=== PATIENT | female | born 1960 | race Caucasian/White ===

== ENCOUNTER 2018-03-21 08:32 | Day surgery (SDC) | payer BC ==
[2018-03-21] MEDS ORDERED: Sodium Chloride 0.9% 10 ML Syringe FLUSH PRN (09:00)
[2018-03-21] MEDS ORDERED: Lactated Ringers 1,000 ML IV SCH (09:00)
[2018-03-21] MEDS ORDERED: Propofol 200 MG/20 ML SDV IV ONE (09:50)
--- NOTE | 2018-03-21 10:25 | PCM.OPNOTE ---
- General Post-Op/Procedure Note Date of Surgery/Procedure: 03/21/18 Operative Procedure(s): c scope with bx Findings: cecal polyp descending colon polyp (splenic flexure) Pre Op Diagnosis: hx of rectal polyp Post-Op Diagnosis: cecal polyp. descending colon polyp Anesthesia Technique: MAC Primary Surgeon: Balwinder Saab Anesthesia Provider: Gerhard Davis Pathology: cecal and descending colon polyp Complications: None Condition: Good Free Text/Narrative:: see dictation
--- NOTE | 2018-03-21 14:52 | OR ---
DATE OF OPERATION: 03/21/2018 SURGEON: Balwinder Saab MD PROCEDURES PERFORMED: Colonoscopy with cold forceps biopsy. PREOPERATIVE DIAGNOSIS: History of rectal polyp. POSTOPERATIVE DIAGNOSIS: Cecal polyp and splenic flexure polyp. INDICATIONS FOR PROCEDURE: This is a 57-year-old white female who is referred with the above-mentioned history of a rectal polyp. She is due for a followup scope, was offered and accepted same. DESCRIPTION OF OPERATION: After an excellent IV sedation was administered, digital rectal exam was done. No marked abnormality was noted. The flexible colonoscope was inserted and advanced without difficulty to the cecum. The prep was excellent. The following findings were noted. Ascending colon, a small cecal polyp, biopsied with cold biopsy forceps, and sent for permanent. Transverse colon, unremarkable. Descending colon, at the splenic flexure, small polyp, biopsied with cold biopsy forceps and sent for permanent. Sigmoid, unremarkable. Rectum and anus, unremarkable. Colon was deflated. The scope was removed. The patient tolerated the procedure well and was taken to recovery room in a good condition. /[id number] /LENAL
== END 2018-03-21 11:47 | disposition home or self-care (01) ==
LOC: FB.SDS 08:32
PROVIDERS: ATTEND Surgery
DX: Z12.11 Encounter for screening for malignant neoplasm of colon (principal); D12.3 Benign neoplasm of transverse colon; K63.5 Polyp of colon; E66.9 Obesity, unspecified; Z68.25 Body mass index [BMI] 25.0-25.9, adult; K21.9 Gastro-esophageal reflux disease without esophagitis; E78.5 Hyperlipidemia, unspecified; Z86.010 Personal history of colon polyps; Z79.899 Other long term (current) drug therapy
CPT/HCPCS: 88305; J2704; J7120

== ENCOUNTER 2023-05-18 06:32 | Day surgery (SDC) | payer BC ==
[~2023-05-18 06:32] MED LIST: Lactated Ringers 1,000 ML IV SCH; Sodium Chloride 0.9% 10 ML Syringe FLUSH PRN
[2023-05-18] MEDS ORDERED: Propofol 200 MG/20 ML SDV IV ONE (06:33)
[2023-05-18] MEDS ORDERED: Lidocaine 2% 5 ML SDV IV ONE (06:33)
[2023-05-18] MEDS ORDERED: Simethicone Drops 40 MG/0.6 ML 30 ML Bottle ONE (07:17)
== END 2023-05-18 09:29 | disposition home or self-care (01) ==
LOC: FB.SDS 06:32
PROVIDERS: ATTEND Surgery
DX: Z12.11 Encounter for screening for malignant neoplasm of colon (principal); K63.5 Polyp of colon; K62.5 Hemorrhage of anus and rectum; K52.9 Noninfective gastroenteritis and colitis, unspecified; K21.9 Gastro-esophageal reflux disease without esophagitis; E78.5 Hyperlipidemia, unspecified; D64.9 Anemia, unspecified; Z90.49 Acquired absence of other specified parts of digestive tract; Z90.89 Acquired absence of other organs; Z79.899 Other long term (current) drug therapy; Z77.22 Contact with and (suspected) exposure to environmental tobacco smoke (acute) (chronic); Z80.0 Family history of malignant neoplasm of digestive organs
CPT/HCPCS: 00811; 45385; 88305; A9270; J2704; J7120